=== PATIENT | male | born 1975 | race Caucasian/White ===

== ENCOUNTER 2022-07-30 07:11 | Outpatient (CLI) | payer OTHER, SELFPAY ==
--- NOTE | 2022-07-30 08:34 | W.ANESCHARGE ---
Anesthesia Charges Start Date/Time Anesthesia Start Date: 07/30/22 Anesthesia Start Time: 07:55 Stop Date/Time Anesthesia Stop Date: 07/30/22 Anesthesia Stop Time: 08:30
== END 2022-07-30 07:12 | disposition home or self-care (01) ==
LOC: OP CLINIC 07:13
PROVIDERS: PCP Physician Assistant Medical; Visit Provider Internal Medicine Gastroenterology
DX: R19.5 Other fecal abnormalities (principal); K62.89 Other specified diseases of anus and rectum
CPT/HCPCS: 45380; 811; 88305; J2704

== ENCOUNTER 2025-03-08 07:51 | Outpatient (CLI) | payer OTHER, SELFPAY ==
--- NOTE | 2025-03-08 08:15 | CRLHL7_ITS ---
For Patients: As a result of the Century Cures Act, medical imaging exams and procedure reports are released immediately into your electronic medical record. You may view this report before your referring provider. If you have questions, please contact your health care provider. ULTRASOUND-GUIDED CORE NEEDLE BIOPSY RIGHT PAROTID GLAND MASS CLINICAL HISTORY: Right parotid gland lesion COMPARISON STUDIES: Ultrasound 03/22/2023, CT 07/02/2023 TECHNIQUE: Real-time ultrasound with image documentation was used for targeting the right parotid gland lesion. Core biopsy specimens were obtained using a [employer]ro[employer] device with an 18 gauge biopsy needle. CONSENT and TIME OUT: The procedure, risks, and alternatives were explained to the patient and a consent was signed. [facility] Protocol was followed including pre-procedure verification that relevant information/documentation was available, reviewed and properly matched to the patient; consent accurate and complete; and equipment and supplies available. Time Out was conducted just prior to starting procedure to verify the four required elements: patient identity, correct side/site marked (if applicable), procedure, relevant images/results properly labeled and displayed (if applicable). PROCEDURE: The patient was positioned supine on the ultrasound table. The right upper neck was prepped with ChloraPrep. 6 cc of 1 percent lidocaine used for local anesthesia. Core samples were obtained. The specimens were placed in 10% formalin and sent to the pathology department. Pressure was held on the biopsy site until all bleeding subsided. The skin incision was closed with Steri-Strips. Post-biopsy instructions were reviewed with the patient, and a written copy was given to him. LATERALITY: Right parotid gland LESION: Mostly solid heterogeneous lesion within the right parotid gland measures 2.3 x 2.3 x 2.7 cm. 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 Dictated by Andrew Whitt MD @ 03/08/2025 2:27:18 PM (Electronically Signed)
== END 2025-03-08 07:52 | disposition home or self-care (01) ==
PROVIDERS: PCP Physician Assistant Medical; Visit Provider Physician Assistant Medical
DX: K11.6 Mucocele of salivary gland (principal)
CPT/HCPCS: 42400; 76942